=== PATIENT | female | born 1945 | race Hispanic/Latino ===

== ENCOUNTER → 2019-03-31 | Day surgery (SDC) | payer OTHER ==
[2019-03-27 13:17] LABS: BASOPHILS % 0.6 % (0.0-1.0); EOSINOPHILS # (AUTO) 0.2 (0.0-0.4); EOSINOPHILS % 4.5 % (0.0-6.0); HEMATOCRIT 38.6 % (34.2-44.1); HEMOGLOBIN 13.3 g/dL (12.0-16.0); LYMPHOCYTES # (AUTO) 1.6 (1.0-3.2); LYMPHOCYTES % 30.8 % (18.0-39.1); MEAN CORPUSCULAR HEMOGLOBIN 32.7 pg (28-32); MEAN CORPUSCULAR HGB CONC 34.5 g/dL (31-35); MEAN CORPUSCULAR VOLUME 94.8 fL (81-99); MONOCYTES # (AUTO) 0.5 (0.2-0.8); MONOCYTES % 8.7 % (4.4-11.3); NEUTROPHILS # (AUTO) 2.9 (2.1-6.9); NEUTROPHILS % 55.2 % (38.7-80.0); PLATELET COUNT 276 x10e3/uL (140-360); RED BLOOD COUNT 4.07 x10e6/uL (3.6-5.1); RED CELL DISTRIBUTION WIDTH 12.7 % (11.7-14.4)
[2019-03-27 13:36] LABS: BLOOD UREA NITROGEN 16 mg/dL (7-26); BUN/CREATININE RATIO 22 (6-25); CALCIUM 9.6 mg/dL (8.4-10.2); CARBON DIOXIDE 27 mmol/L (22-29); CHLORIDE 104 mmol/L (98-107); CREATININE, SERUM 0.72 mg/dL (0.57-1.11); EST GLOMERULAR FILTRATION RATE > 60 ML/MIN (60-); GLUCOSE 103 mg/dL (74-118); SODIUM 141 mmol/L (136-145)
--- NOTE | 2019-03-27 14:20 | Diagnostic Imaging Report ---
EXAMINATION: CHEST 2 VIEWS INDICATION: ^PREOP. Left breast mass. COMPARISON: None FINDINGS: PA and lateral views TUBES and LINES: None. LUNGS: Lungs are well inflated. There are bibasilar atelectasis. There is no evidence of pneumonia or pulmonary edema. PLEURA: No pleural effusion or pneumothorax. HEART AND MEDIASTINUM: The cardiomediastinal silhouette is unremarkable. There are atherosclerotic calcifications within the aorta. BONES AND SOFT TISSUES: No acute osseous lesion. Right rotator cuff anchor sutures. Punctate calcification in the left rotator cuff tendon, likely calcific tendinosis. Soft tissues are unremarkable. UPPER ABDOMEN: No free air under the diaphragm. IMPRESSION: Bibasilar atelectasis. Signed by: Dr. Rikki Zambrano M.D. on 03/27/2019 2:16 PM
[~2019-03-31] MED LIST: ACETAMINOPHEN325 M1 PO; ARICEPT5 MG PO; ASPIR 8181 MG PO; BUPIVACAINE 0.25%/EPI 30ML SDV INJ ONE; CALCIUM 600 +1 EAC2 PO; CETIRIZINE HCL10 MG PO; DEXAMETHASONE SOD PHOS INJ 4 MG/ML VIAL ONE; DICLOFENAC SOD100 MG PO; FENTANYL CITRATE/PF 100MCG/2 ML INJ ONE; FLUTICASONE; GINKGO BILOBA60 M1 PO; KETOROLAC TROMETHAMINE 30 MG/ML VIAL ONE; LIDOCAINE HCL 2% LOCAL INJ 5 ML SDV VIAL INJ ONE; OMEGA 3 FISH O1 EACH PO; ONDANSETRON HCL INJ 2MG/ML 2ML 2 MG/ML VIAL ONE; PROPOFOL IV EMULSION 10 MG/ML 20 ML VIAL ONE; REFRESH LIQUIGE15 ML OP; REFRESH OPTIVE10 ML OP; SCOPOLAMINE 1.5 MG PATCH ONE; SEVOFLURANE INHAL SOLN 250 ML PEN BTL ONE; SIMVASTATIN40 MG PO; VITAMIN B12-FO1 EACH PO; VITAMIN C500 M1 PEG; VITAMIN D32000 UNIT PEG; [UNRECOGNIZED DRUG - OTHER]
--- OUTSIDE RECORDS SUMMARY | 2019-03-31 07:18 | XMS REPORT | Summary of Care ---
Author Author [facility] Outpatient Imaging [facility] Outpatient Imaging [facility] Address Unknown Phone Unavailable Encounter HQ Encntr_alias(FIN) [id number] Date(s): 04/11/17 - 04/11/17 [facility] Outpatient [address] [phone] Discharge Disposition: Home or Self Care Attending Physician: Israel Romano MD Vital Signs No data available for this section Problem List No data available for this section Allergies, Adverse Reactions, Alerts No data available for this section Medications No data available for this section Results No data available for this section Immunizations No data available for this section Procedures No data available for this section Social History No data available for this section Assessment and Plan No data available for this section
--- OUTSIDE RECORDS SUMMARY | 2019-03-31 07:18 | XMS REPORT ---
Author [facility] Address Unknown Phone Unavailable Care Team Providers Care Inseam Leveler Name Role Phone Shakira UMANA Unavailable Unavailable Payers Payer Name Policy Type Policy Number Effective Date Expiration Date Problems This patient has no known problems. Allergies, Adverse Reactions, Alerts Allergy Name Allergy Type Status Severity Reaction(s) Onset Date Inactive Date Treating Clinician Comments No Known Allergies DA Active U 2011-04-03 00:00:00 Medications This patient has no known medications. Results Test Description Test Time Test Comments Text Results Atomic Results Result Comments CHEST 2 VIEWS 2019-03-27 14:15:00 [facility] [address] [address] Patient Name: MATT CARRILLO MR #: [id number] : 1945 Age/Sex: 73/F Req #: [id number] Adm Physician: Ordered by: KAVON UMANA MD Report #: [id number] Location: OR Room/Bed: Procedure: [id number] DX/CHEST 2 VIEWS Exam Date: 03/27/19 Exam Time: 1300 REPORT STATUS: Signed EXAMINATION: CHEST 2 VIEWS INDICATION: PREOP. Left breast mass. COMPARISON: None FINDINGS: PA and lateral views TUBES and LINES: None. LUNGS: Lungs are well inflated. There are bibasilar atelectasis. There is no evidence of pneumonia or pulmonary edema. PLEURA: No pleural effusion or pneumothorax. HEART AND MEDIASTINUM: The cardiomediastinal silhouette is unremarkable. There are atherosclerotic calcifications within the aorta. BONES AND SOFT TISSUES: No acute osseous lesion. Right rotator cuff anchor sutures. Punctate calcification in the left rotator cuff tendon, likely calcific tendinosis. Soft tissues are unremarkable. UPPER ABDOMEN: No free air under the diaphragm. IMPRESSION: Bibasilar atelectasis. Signed by: Dr. Kati Zambrano M.D. on 03/27/2019 2:16 PM Dictated By: KATI ZAMBRANO MD 15 Transcribed By: HERLINDA on 03/27/191415 COPY TO: KAVON UMANA MD - XR C-SPINE 2-3 VIEWS 2019-03-06 16:13:00 FAX: Bryanna Rodriguez [phone] [place]: O St: REG Name: MATT CARRILLO [facility] : 1945 Age/S: 73/F [address] [facility] Unit #: [id number] Loc: [place] [address] Phys: Bryanna Concepcion MD Acct: [id number] Dis Date: Status: REG CLI PHONE #: [phone] Exam Date: 03/06/2019 1602 FAX #: [phone] Reason: NECK PAIN EXAMS: CPT CODE: [id number] XR C-SPINE 2-3 VIEWS 11223 REASON FOR EXAM: NECK PAIN EXAM ORDER DATE: 03/06/2019 3:47 PM Ordering M.DMelissa: Bryanna Mandujano MD PROCEDURE: - XR C-SPINE 2-3 VIEWS FINDINGS: 3 views of the cervical spine were obtained including odontoid view. The osseous structures are unremarkable in size and shape with anterior osteophytes most pronounced at C3-6. Severe narrowing of C3-4. Mild to moderate narrowing of C4-5, C5-6, and C6-7 disc spaces. No evidence of fracture. IMPRESSION: Severe degenerative changes and disc disease throughout the cervical spine. No acute osseous abnormality at 1613 Reported and signed by: Chon Rosenthal M.D. CC: Technologist: JACKIE Power) Trnscrd Date/Time/By: 03/06/2019 (0183) : By: Sam Orig Print D/T: S: 03/06/2019 (7998) PAGE 1 Signed Report CREATININE W ESTIMATED GFR 2019-03-03 09:38:00 BEDSIDE CREATININE (test code=CREATBED) mg/dL 0.7-1.3 GLOMERULAR FILTRATION RATE POC (test code=GFRBED) 98 >60 CREATININE W ESTIMATED [id number] 09:38:00* Test Item Value Reference Range Comments BEDSIDE CREATININE (test code=CREATBED) 0.60 mg/dL 0.7-1.3 GLOMERULAR FILTRATION RATE POC (test code=GFRBED) > 60 >60 Previously reported result: 98 Edited by: ANCELMO on 03/03/19:33440703/03/19 0938: GFRBED previously reported as: 98 H
--- OUTSIDE RECORDS SUMMARY | 2019-03-31 07:18 | XMS REPORT | Summary of Care ---
Author Author [facility] [place] Organization [facility] [place] Address Unknown Phone Unavailable Encounter HQ Encntr_alisolitario(FIN) [id number] Date(s): 11/23/15 - 11/23/15 [facility] [place] [address] [place] [address] [phone] Discharge Disposition: Home Attending Physician: Abdi Patterson MD Vital Signs No data available for [...]
[2019-03-31 10:50] VITALS: BP 147/69
--- NOTE | 2019-03-31 16:39 | Operative Report ---
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 OPERATION PERFORMED: Left partial mastectomy. STULL INSTALLER: JOANN Gamboa. ANESTHESIA: General. COMPLICATIONS: None. ESTIMATED BLOOD LOSS: Minimal. DESCRIPTION OF PROCEDURE: With the patient lying in bed in the supine position under good general anesthesia, the left breast was prepped with Betadine solution and draped in the usual manner. A circumareolar incision was made in the left breast at the 6 o'clock position. The nipple was then slowly and carefully raised as well as areola and immediately the palpable mass was identified, which was consistent with a papilloma. The entire breast tissue around the palpable mass was then totally and completely removed including the surrounding breast tissue and the lesion was sent for pathological examination. The whole area was thoroughly irrigated. Perfect hemostasis was ascertained. The breast tissue was then reapproximated with interrupted sutures of 2-0 chromic and the skin was closed with interrupted vertical mattress sutures of 4-0 nylon. A dressing was applied. The sponge, lap, and needle count was correct. The patient tolerated the procedure well and returned to the recovery room in stable condition. Jordin Randall MD JLR/MODL /[id number]
== END | disposition home or self-care (01) ==
LOC: OR 06:43
PROVIDERS: ATTEND Surgery
DX: D24.2 Benign neoplasm of left breast (principal); I10 Essential (primary) hypertension; Z01.810 Encounter for preprocedural cardiovascular examination; Z01.812 Encounter for preprocedural laboratory examination; Z01.818 Encounter for other preprocedural examination; Z79.82 Long term (current) use of aspirin
CPT/HCPCS: 19301; 36415; 71046; 80048; 85025; 88305; 93005; J1100; J1885; J2001; J2405; J2704

== ENCOUNTER 2019-12-28 00:57 | Emergency (ER) | payer MEDICARE ==
[~2019-12-28] VITALS: Ht 170.2 cm; Wt 80.7 kg
[~2019-12-28 00:57] MED LIST changes: -BUPIVACAINE 0.25%/EPI 30ML SDV INJ ONE; -DEXAMETHASONE SOD PHOS INJ 4 MG/ML VIAL ONE; -FENTANYL CITRATE/PF 100MCG/2 ML INJ ONE; -KETOROLAC TROMETHAMINE 30 MG/ML VIAL ONE; -LIDOCAINE HCL 2% LOCAL INJ 5 ML SDV VIAL INJ ONE; -ONDANSETRON HCL INJ 2MG/ML 2ML 2 MG/ML VIAL ONE; -PROPOFOL IV EMULSION 10 MG/ML 20 ML VIAL ONE; -SCOPOLAMINE 1.5 MG PATCH ONE; -SEVOFLURANE INHAL SOLN 250 ML PEN BTL ONE
--- OUTSIDE RECORDS SUMMARY | 2019-12-28 01:00 | XMS REPORT ---
Author [facility] Address Unknown Phone Unavailable Care Team Providers Care Media Planner / Buyer Name Role Phone Shakira UMANA Unavailable Unavailable RIMMA ZHONG Unavailable Unavailable Payers Payer Name Policy Type [...] Result Comments CHEST 2 VIEWS 2019-03-27 14:15:00 [facility] [address] [address] Patient Name: MATT CARRILLO MR #: [id number] : 1945 Age/Sex: 73/F Req #: [id number] Adm Physician: Ordered by: KAVON UMANA MD Report #: [id number] Location: OR Room/Bed: Procedure: [id number] DX/CHEST 2 VIEWS Exam Date: 03/27/19 Exam [...] diaphragm. IMPRESSION: Bibasilar atelectasis. Signed by: Dr. Rikki Zambrano M.D. on 03/27/2019 2:16 PM Dictated By: RIKKI ZAMBRANO MD 1416 Transcribed By: HERLINDA on 03/27/19 1416 COPY TO: KAVON UMANA MD - XR C-SPINE 2-3 VIEWS 2019-03-06 16:13:00 FAX: Bryanna Rodriguez [phone] [place]: O St: REG Name: MATT CARRILLO [facility] : 1945 Age/S: 73/F [address] Unit #: [id number] Loc: [place] [address] Phys: Bryanna Concepcion MD Acct: [id number] Dis Date: Status: REG CLI PHONE #: [phone] Exam Date: 03/06/2019 1602 FAX #: [phone] Reason: NECK PAIN EXAMS: CPT CODE: [id number] XR C-SPINE 2-3 VIEWS 30204 REASON FOR EXAM: NECK PAIN EXAM ORDER DATE: 03/06/2019 3:47 PM Ordering [place]: Bryanna Mandujano MD PROCEDURE: - XR C-SPINE [...] signed by: Chon Rosenthal M.D. CC: Technologist: RT Jannet(Trevor) Trnscrd Date/Time/By: 03/06/2019 (5533) : By: Sam Orig Print D/T: S: 03/06/2019 (7054) PAGE 1 Signed Report CREATININE W ESTIMATED GFR 2019-03-03 09:38:00 BEDSIDE CREATININE (test code=CREATBED) mg/dL 0.7-1.3 GLOMERULAR FILTRATION RATE POC (test code=GFRBED) 98 >60 CREATININE W ESTIMATED [id number] 09:38:00* Test Item Value Reference Range Comments BEDSIDE CREATININE (test code=CREATBED) 0.60 mg/dL 0.7-1.3 GLOMERULAR FILTRATION RATE POC (test code=GFRBED) > 60 >60 Previously reported result: 98 Edited by: ANCELMO on 03/03/19:[id number]/03/19 0938: GFRBED previously reported as: 98 H KNEE RIGHT 1-2 [id number] 09:57:[address] [address] Patient Name: MATT CARRILLO MR #: [id number] : 1945 Age/Sex: 72/F Req #: [id number] Adm Physician: Ordered by: RIMMA ZHONG MD Report #: [id number] Location: OR Room/Bed: Procedure: [id number] DX/KNEE RIGHT 1-2 VIEWS Exam Da te: 04/22/18 Exam Time: 0940 REPORT STATUS: Sig gloria PROCEDURE: KNEE RIGHT 1-2 VIEWS TECHNIQUE: AP and crosstable latera l right knee INDICATION: Postop evaluation COMPARISON: None. FINDI NGS: See conclusion CONCLUSION: 1. Total right knee arthroplasty i ntact and in anatomic alignment. 2. Expected regional postsurgical changes inc luding soft tissue swelling, joint gas and fluid, and overlying surgical stap les. 3. No acute abnormality. Dictated by: Kaya Alatorre M.D. on 04/22/2018 at 9:57 Electronically approved by: Kaya power M.D. on 04/22/2018 at 9:57 Dictated By: KAYA ALATORRE MD ectronically Signed By: KAYA ALATORRE MD on 04/22/18956 Transcribed By: [facility] on 04/22/18956 COPY TO: RIMMA ZHONG MD CHEST 2 VIEWS 2018-04-19 15:57:[address] [address] Patient Name: MATT CARRILLO MR #: [id number] : 1945 Age/Sex: 72/F Req #: [id number] Adm Physician: Ordered by: RONALD GREEN MD Report #: [id number] Location: OR Room/Bed: Procedure: [id number] DX/CHEST 2 VIEWS Exam Date: Exam Time: 1518 REPORT STATUS: Signed PRO CEDURE: Frontal and lateral views of the chest. COMPARISON: None. INDICATIONS: PREOP CXR FINDINGS: Lines/tubes: None. Lungs: The lungs are well inflated and clear. There is no evidence of pneumonia or pulmonary edema. Pleura: There is no pleural effusion or pneumothorax. Heart and mediastinum: Normal heart size. Atherosclerotic calcifications of the thoracic aorta. Bones: No acute bony abnormality. IMPRESSION : 1. No acute cardiopulmonary disease. Dictated by: Sandrine lion M.D. on 04/19/2018 at 15:57 Electronically approved by: Sandrine Frederick M.D. on 04/19/2018 at 15:57 Dictated By: SANDRINE FREDERICK MD 1557 Transcribed By: ANCELMO on 04/19/18 6810 COPY TO: RONALD GREEN MD
[2019-12-28] MEDS ORDERED: SODIUM CHLORIDE 0.9% 1000ML 1,000 ML IV STA (01:03)
[2019-12-28] MEDS ORDERED: ONDANSETRON HCL INJ 2MG/ML 2ML 2 MG/ML VIAL IV STA (01:06)
[2019-12-28 01:21] LABS: BASOPHILS % 0.3 % (0.0-1.0); EOSINOPHILS % 0.2 % (0.0-6.0); HEMOGLOBIN 13.9 g/dL (12.0-16.0); LYMPHOCYTES # (AUTO) 1.7 (1.0-3.2); LYMPHOCYTES % 25.9 % (18.0-39.1); MEAN CORPUSCULAR HGB CONC 33.9 g/dL (31-35); MEAN CORPUSCULAR VOLUME 94.5 fL (81-99); MONOCYTES # (AUTO) 0.5 (0.2-0.8); MONOCYTES % 8.3 % (4.4-11.3); NEUTROPHILS # (AUTO) 4.2 (2.1-6.9); PLATELET COUNT 269 x10e3/uL (140-360); RED BLOOD COUNT 4.34 x10e6/uL (3.6-5.1); RED CELL DISTRIBUTION WIDTH 12.4 % (11.7-14.4)
[2019-12-28 01:46] LABS: ALANINE AMINOTRANSFERASE 20 IU/L (0-55); ALBUMIN 4.1 g/dL (3.5-5.0); ALBUMIN/GLOBULIN RATIO 1.2 (0.8-2.0); ALKALINE PHOSPHATASE 102 IU/L (40-150); ANION GAP 16.6 mmol/L (8-16); BLOOD UREA NITROGEN 11 mg/dL (7-26); BUN/CREATININE RATIO 16 (6-25); CALCIUM 9.4 mg/dL (8.4-10.2); CARBON DIOXIDE 25 mmol/L (22-29); CHLORIDE 102 mmol/L (98-107); EST GLOMERULAR FILTRATION RATE > 60 ML/MIN (60-); GLUCOSE 123 mg/dL (74-118); POTASSIUM 3.6 mmol/L (3.5-5.1); SODIUM 140 mmol/L (136-145)
[2019-12-28] MEDS ORDERED: IOPAMIDOL 370 MG/ML 200 ML INFUS..BTL INJ ONE (02:28)
[2019-12-28] MEDS ORDERED: SODIUM CHLORIDE 0.9% 50ML 50 ML ONE (02:28)
[2019-12-28 02:49] LABS: BILIRUBIN,URINE NEGATIVE (NEGATIVE); CLARITY,URINE CLEAR (CLEAR); COLOR,URINE YELLOW (YELLOW); KETONES,URINE 1+ (NEGATIVE); LEUKOCYTE ESTERASE ,URINE NEGATIVE (NEGATIVE); NITRITE,URINE NEGATIVE (NEGATIVE); PROTEIN,URINE DIPSTICK NEGATIVE (NEGATIVE); URINE UROBILINOGEN 0.2 mg/dL (0.2 - 1)
[2019-12-28 02:50] LABS: BACTERIA,URINE MANY /HPF; EPITHELIAL CELLS,URINE MODERATE /LPF; WBC,URINE (MAN) 0-5 /HPF (0-5)
--- NOTE | 2019-12-28 03:49 | Diagnostic Imaging Report ---
EXAM: CT Abdomen and Pelvis WITH contrast INDICATION: Right lower quadrant pain, nausea, vomiting COMPARISON: None. TECHNIQUE: Abdomen and pelvis were scanned utilizing a multidetector helical scanner from the lung base to the pubic symphysis after administration of IV contrast. Coronal and sagittal reformations were obtained. Routine protocol was performed. Scan was performed when during portal venous phase. IV CONTRAST: 100 mL of Isovue 370 ORAL CONTRAST: Water COMPLICATIONS: None RADIATION DOSE: Total DLP: 497 mGy*cm Estimated effective dose: (DLP x 0.015 x size factor) mSv CTDIvol has been reviewed. It is below the limits set by the Radiation Protocol Committee (RPC). Dose modulation, iterative reconstruction, and/or weight based adjustment of the mA/kV was utilized to reduce the radiation dose to as low as reasonably achievable. FINDINGS: LINES and TUBES: None. LOWER THORAX: Unremarkable HEPATOBILIARY: No focal hepatic lesions. No biliary ductal dilation. GALLBLADDER: No radio-opaque stones or sludge. No wall thickening. SPLEEN: No splenomegaly. PANCREAS: No focal masses or ductal dilatation. ADRENALS: No adrenal nodules KIDNEYS/URETERS: Kidneys enhance symmetrically. No hydronephrosis. No cystic or solid mass lesions. No stones. GI TRACT: Small sliding gastric hiatal hernia. No abnormal distention, wall thickening, or evidence of bowel obstruction. Appendix is normal. PELVIC ORGANS/BLADDER: Hysterectomy. No adnexal masses. Urinary bladder unremarkable. LYMPH NODES: No lymphadenopathy. VESSELS: Scattered mild arterial vascular calcifications. PERITONEUM / RETROPERITONEUM: No free air or fluid. BONES: Advanced degenerative changes in this finding and there are also degenerative changes in the pelvis and hips. SOFT TISSUES: There is a fat containing para-umbilical hernia. IMPRESSION: Small sliding gastric hernia. Signed by: Loy Lennon DO on 12/28/2019 3:47 AM
[2019-12-28 03:56] VITALS: BP 141/58
== END 2019-12-28 04:09 | disposition home or self-care (01) ==
LOC: ER 00:57
DX: R10.31 Right lower quadrant pain (principal); R11.2 Nausea with vomiting, unspecified
CPT/HCPCS: 36415; 74177; 80053; 81001; 83880; 85025; 99284; J2405; J7030; Q9967

== ENCOUNTER → 2021-09-16 | Outpatient (CLI) | payer MEDICARE | LOC: RAD 11:13 | PROVIDERS: ATTEND Anesthesiology Addiction Medicine | DX: M54.51 Vertebrogenic low back pain (principal) | CPT/HCPCS: 72100 ==